=== PATIENT | male | born 1985 | race Two or more races ===

== ENCOUNTER 2017-07-15 22:57 | Emergency (ER) | payer OTHER ==
[~2017-07-15] VITALS: Ht 165.1 cm; Wt 97.1 kg
[2017-07-15 23:14] VITALS: BP 151/94
== END 2017-07-16 | disposition left against medical advice (07) ==
LOC: ER 23:00
DX: Z02.83 Encounter for blood-alcohol and blood-drug test (principal); Z53.21 Procedure and treatment not carried out due to patient leaving prior to being seen by health care provider